=== PATIENT | male | born 1955 | race Two or more races ===

== ENCOUNTER 2024-04-25 08:07 | Inpatient (IN) | payer OTHER ==
[~2024-04-25] VITALS: Ht 177.8 cm; Wt 90.0 kg
[~2024-04-25 08:07] MED LIST: LISI20TA56 PO
[2024-04-25] MEDS: LISINOPRIL 5 MG TAB PO ONE (08:36)
[2024-04-25] MEDS: ASPirin 325 MG TAB PO ONE (08:36)
[2024-04-25 08:37] VITALS: PULSE 65; RESP 20; O2SAT 98
[2024-04-25 08:46] LABS: Chloride 109 mmol/L (98-107); Potassium 3.9 mmol/L (3.5-5.1); Sodium 143 mmol/L (136-145)
[2024-04-25 08:47] LABS: Anion Gap 8 (5-15); Calcium 9.7 mg/dL (8.7-10.4); Carbon Dioxide 26 mmol/L (20-30)
[2024-04-25 08:52] LABS: Blood Urea Nitrogen 15 mg/dL (9-23); Glucose 173 mg/dL (74-106)
[2024-04-25 09:05] LABS: Basophils # (auto) 0 10 ^3/uL (0-0.2); Basophils % (auto) 0.3 % (0.0-2.0); Eosinophils # (auto) 0 10 ^3/uL (0-0.8); Eosinophils % (auto) 0.5 % (0.0-7.0); Hemoglobin 15.1 g/dL (13.5-17.5); Lymphocytes % (auto) 13.2 % (10.0-50.0); Mean Corpuscular Hemoglobin 33.4 pg (28.0-32.0); Mean Corpuscular Hgb Conc. 35.1 g/dL (32.0-36.0); Mean Corpuscular Volume 95.4 fL (80.0-100.0); Monocytes # (auto) 0.3 10 ^3/uL (0-1.3); Monocytes % (auto) 4.3 % (0.0-12.0); Neutrophils % (auto) 81.7 % (37.0-80.0); Nucleated Red Blood Cells % 0.3 %; Platelet Count (auto) 158 10^3/uL (140-450); White Blood Cell 7.3 10^3/uL (4.4-10.8)
[2024-04-25] MEDS ORDERED: NITROGLYCERIN 0.4 MG SL TAB SL PRN (12:30)
[2024-04-25] MEDS ORDERED: ACETAMINOPHEN 325 MG TAB PO PRN (12:30)
[2024-04-25] MEDS ORDERED: MORPHINE SULFATE INJ 2 MG/ml SYRG IV PRN (12:30)
[2024-04-25 13:22] LABS: Triglycerides 99 mg/dL (< 150)
[2024-04-25 13:23] LABS: LDL Cholesterol 45 mg/dL (< 100)
[2024-04-25 13:24] LABS: Cholesterol 100 mg/dL (< 200); HDL Cholesterol 39 mg/dL (40-59)
[2024-04-25] MEDS: NITROGLYCERIN 50MG/250ML 250 ML IV ONE (14:22)
[2024-04-25] MEDS ORDERED: ATOR-47 PO (16:14)
[2024-04-25] MEDS ORDERED: BISO5TAB44 PO (16:14)
[2024-04-25] MEDS ORDERED: ASPI1TAB20 PO (16:15)
[2024-04-25 16:16] VITALS: RESP 18; O2SAT 98
[2024-04-25 17:00] VITALS: BP_SYST 139; BP_SYST 142; BP_DIAS 45; BP_DIAS 74; PULSE 48; PULSE 50; RESP 18; TEMP 98; TEMP 98.2; O2SAT 97; O2SAT 98
[2024-04-25 20:00] VITALS: PULSE 50; PULSE 52; RESP 16; O2SAT 94
[2024-04-25 20:47] VITALS: BP 133/55; PULSE 50; RESP 16; TEMP 98.8; O2SAT 94
[2024-04-26] VITALS (8 sets, daily range): BP systolic 124–156; BP diastolic 50–69; PULSE 45–52; RESP 16–18; TEMP 98–98.9; O2SAT 91–97
[2024-04-26 06:36] LABS: Alanine Aminotransferase 38 U/L (7-40); Alkaline Phosphatase 80 U/L (46-116); Anion Gap 5 (5-15); BUN/Creatinine Ratio 13.6 (10.0-20.0); Blood Urea Nitrogen 14 mg/dL (9-23); Calcium 9.5 mg/dL (8.7-10.4); Carbon Dioxide 28 mmol/L (20-30); Chloride 109 mmol/L (98-107); Glucose 102 mg/dL (74-106); Potassium 3.8 mmol/L (3.5-5.1); Sodium 142 mmol/L (136-145)
[2024-04-26 06:37] LABS: Albumin 4.1 g/dL (3.2-4.8); Aspartate Aminotransferase 23 U/L (13-40)
[2024-04-26 06:38] LABS: Total Protein 6.4 g/dL (5.7-8.2)
[2024-04-26 06:58] LABS: Basophils # (auto) 0.1 10 ^3/uL (0-0.2); Basophils % (auto) 0.8 % (0.0-2.0); Eosinophils # (auto) 0.1 10 ^3/uL (0-0.8); Eosinophils % (auto) 1.8 % (0.0-7.0); Hematocrit 42.3 % (41.0-53.0); Hemoglobin 14.9 g/dL (13.5-17.5); Lymphocytes # (auto) 1.6 10 ^3/uL (0.4-5.4); Lymphocytes % (auto) 24.5 % (10.0-50.0); Mean Corpuscular Hgb Conc. 35.4 g/dL (32.0-36.0); Mean Corpuscular Volume 96.2 fL (80.0-100.0); Monocytes # (auto) 0.6 10 ^3/uL (0-1.3); Monocytes % (auto) 8.6 % (0.0-12.0); Neutrophils # (auto) 4.3 10 ^3/uL (1.6-8.6); Neutrophils % (auto) 64.3 % (37.0-80.0); Platelet Count (auto) 148 10^3/uL (140-450); Red Blood Cells 4.39 10^6/uL (4.5-5.90); Red Cell Distribution Width 13.7 % (11.8-14.3); White Blood Cell 6.7 10^3/uL (4.4-10.8)
[2024-04-26] MEDS: ENOXAPARIN SOD 40 MG/0.4 ML SYRINGE SC SCH (09:28)
[2024-04-26] MEDS: ASPirin 81 mg TAB PO SCH (09:28)
[2024-04-26] MEDS ORDERED: LISINOPRIL 20 MG TAB PO SCH (10:00)
[2024-04-26] MEDS ORDERED: hydrALAZINE HCL 20 MG/ML VL IV PRN (11:00)
[2024-04-26] MEDS ORDERED: cefTRIAXone 1GM/50ML D5W 50 ML IV ONE (11:00)
[2024-04-26] MEDS: ATORVASTATIN 20 MG TAB PO SCH (21:38)
[2024-04-27] VITALS (13 sets, daily range): BP systolic 110–143; BP diastolic 45–67; PULSE 43–61; RESP 12–17; TEMP 98–98.9; O2SAT 93–98
[2024-04-27 06:23] LABS: Basophils # (auto) 0 10 ^3/uL (0-0.2); Basophils % (auto) 0.3 % (0.0-2.0); Eosinophils # (auto) 0.1 10 ^3/uL (0-0.8); Hematocrit 42.5 % (41.0-53.0); Lymphocytes # (auto) 1.5 10 ^3/uL (0.4-5.4); Lymphocytes % (auto) 25.4 % (10.0-50.0); Mean Corpuscular Hemoglobin 33.7 pg (28.0-32.0); Mean Corpuscular Hgb Conc. 35.2 g/dL (32.0-36.0); Mean Corpuscular Volume 95.8 fL (80.0-100.0); Monocytes # (auto) 0.5 10 ^3/uL (0-1.3); Monocytes % (auto) 8.7 % (0.0-12.0); Neutrophils # (auto) 3.9 10 ^3/uL (1.6-8.6); Neutrophils % (auto) 64.6 % (37.0-80.0); Platelet Count (auto) 146 10^3/uL (140-450); Red Blood Cells 4.44 10^6/uL (4.5-5.90); Red Cell Distribution Width 13.6 % (11.8-14.3)
[2024-04-27 06:30] LABS: Anion Gap 8 (5-15); Calcium 9.7 mg/dL (8.7-10.4); Carbon Dioxide 28 mmol/L (20-30); Chloride 107 mmol/L (98-107); Potassium 3.6 mmol/L (3.5-5.1); Sodium 143 mmol/L (136-145)
[2024-04-27 06:36] LABS: BUN/Creatinine Ratio 14.6 (10.0-20.0); Blood Urea Nitrogen 15 mg/dL (9-23); Glucose 110 mg/dL (74-106)
[2024-04-27 07:45] LABS: Urine Bacteria None Seen /hpf (None Seen)
[2024-04-27 08:09] LABS: Urine Blood Negative /uL (Negative); Urine Clarity Clear (Clear); Urine Color Light-Yellow (Yellow); Urine Protein, UAD Negative (Negative); Urine Specific Gravity 1.009 (1.001-1.035); Urine Urobilinogen Normal (Negative); Urine WBC 1 /hpf (0 - 3)
[2024-04-27 08:18] LABS: Amphetamine Screen, Urine Neg (NEGATIVE)
[2024-04-27 08:19] LABS: Benzodiazephine Screen, Urine Neg (NEGATIVE)
[2024-04-27 08:20] LABS: Barbiturate Scree,Urine Neg (NEGATIVE)
[2024-04-27 08:21] LABS: Cannabinoid Screen, Urine Neg (NEGATIVE); Cocaine Screen, Urine Neg (NEGATIVE); Opiate Scree,Urine Neg (NEGATIVE); Phencyclidine Screen, Urine Neg (NEGATIVE)
[2024-04-27] MEDS ORDERED: cefTRIAXone 1GM/50ML D5W 50 ML IV SCH (09:00)
[2024-04-27] MEDS ORDERED: NIFEdipine ER 30 MG TAB PO SCH (10:00)
[2024-04-27] MEDS ORDERED: HEPARIN IN NS 1000Units/500mL 1,500 ML ONE (10:40)
[2024-04-27] MEDS ORDERED: LIDOCAINE 2%HCL (LOCAL ANESTH.) INJ 20ML MDV ONE ×2 (10:40→12:47)
[2024-04-27] MEDS ORDERED: IOHEXOL 350 MG/ML 100ML IJ ONE (10:40)
[2024-04-27] MEDS ORDERED: IODIXANOL 320MG/ML 100ML BTL IV ONE (11:55)
[2024-04-27] MEDS ORDERED: VERAPAMIL 2.5MG/ML INJ 2ML VIAL IV ONE (12:47)
[2024-04-27] MEDS ORDERED: SODIUM CHL 0.9% 0 ML ONE (12:47)
[2024-04-27] MEDS ORDERED: fentaNYL CITRATE 100 MCG/2 ML VL ONE (12:47)
[2024-04-27] MEDS ORDERED: HEPARIN SODIUM (PORCINE) 5000 UNITS/ML 1ML VIAL ONE (12:47)
[2024-04-27] MEDS ORDERED: MIDAZOLAM HCL 2MG/2ML 2ml VIAL (1mg/ml) ONE (12:47)
[2024-04-27] MEDS ORDERED: ANGIOMAX 250 MG VIAL IV ONE (12:47)
[2024-04-28 01:00] VITALS: BP 127/50; PULSE 51; RESP 16; TEMP 98; O2SAT 95
[2024-04-28 05:00] VITALS: BP 131/54; PULSE 51; RESP 16; TEMP 97.7; O2SAT 95
[2024-04-28 07:31] LABS: Anion Gap 8 (5-15); Carbon Dioxide 28 mmol/L (20-30); Chloride 106 mmol/L (98-107); Sodium 142 mmol/L (136-145)
[2024-04-28 07:32] LABS: Calcium 9.8 mg/dL (8.7-10.4)
[2024-04-28 07:37] LABS: BUN/Creatinine Ratio 18.8 (10.0-20.0); Blood Urea Nitrogen 18 mg/dL (9-23); Glucose 101 mg/dL (74-106)
[2024-04-28 08:00] VITALS: PULSE 54; RESP 16; O2SAT 94
[2024-04-28 09:00] VITALS: BP 139/63; PULSE 63; RESP 18; TEMP 98.2; O2SAT 96
[2024-04-28] MEDS: ISOSORBIDE MONONITRATE ER 60 MG TAB PO SCH (10:40)
[2024-04-28] MEDS ORDERED: ISO60SRT PO (11:28)
[2024-04-28 13:00] VITALS: BP 113/62; PULSE 64; RESP 18; TEMP 98.7; O2SAT 96
[2024-04-28] MEDS ORDERED: BISO5TAB44 PO (14:07)
== END 2024-04-28 15:33 | disposition home or self-care (01) | DRG 287 ==
LOC: ER 08:07 → EDBD 08:07 → TELE 12:32 → TELE-WESTW 14:57 → WEST WING 04-27 23:00
PROVIDERS: ADMIT Internal Medicine; ATTEND Internal Medicine
PROC: 4A023N7 Measurement of Cardiac Sampling and Pressure, Left Heart, Percutaneous Approach (ICD-10-PCS; principal; 2024-04-27)
PROC: B211YZZ Fluoroscopy of Multiple Coronary Arteries using Other Contrast (ICD-10-PCS; 2024-04-27)
DX: I25.10 Atherosclerotic heart disease of native coronary artery without angina pectoris (principal); I10 Essential (primary) hypertension; E78.5 Hyperlipidemia, unspecified; I45.10 Unspecified right bundle-branch block; I16.0 Hypertensive urgency; R73.03 Prediabetes; Z95.1 Presence of aortocoronary bypass graft; Z86.11 Personal history of tuberculosis; Z88.0 Allergy status to penicillin; I25.2 Old myocardial infarction
CPT/HCPCS: 36415; 71045; 80048; 80053; 80061; 80307; 81001; 82306; 82607; 83036; 83880; 84443; 84484; 85025; 85379; 87086; 93306; 93458; 99152; 99291; C1894; G0378; J2250; Q9967